=== PATIENT | male | born 1990 | race Caucasian/White ===

== ENCOUNTER 2021-08-18 19:21 | Emergency (ER) | payer OTHER ==
--- NOTE | 2021-08-18 20:20 | ED Physician Documentation ---
History of Present Illness - Stated complaint Stated Complaint: WELTS ON BODY,ITCHY - Chief complaint Chief Complaint: Allergic Rx - Additonal information Additional information: 31-year-old male presents emergency department for evaluation of hives. He began developing welts at about 11 AM while he was flying. No history of similar in the past. No new foods lotions or detergents. No family ill history of hives. When he was done flying he had generalized hives of his arms legs and torso. He had no tongue or lip swelling no difficulty breathing no chest pain. He did take a Benadryl and thus presents to the ER. Review of Systems Constitutional: reports: Reviewed and negative Nose: reports: Reviewed and negative Throat: reports: Reviewed and negative Cardiac: reports: Reviewed and negative Respiratory: reports: Reviewed and negative GI: reports: Reviewed and negative : reports: Reviewed and negative Skin: reports: Rash PD PAST MEDICAL HISTORY - Past Medical History Past Medical History: No - Past Surgical History Past Surgical History: No - Present Medications Home Medications: Ambulatory Orders Medication Instructions Recorded Confirmed Famotidine [Pepcid] 20 mg PO BID #60 tablet 08/18/21 diphenhydrAMINE [Benadryl] 25 mg PO BID #8 cap 08/18/21 predniSONE [Deltasone] 40 mg PO DAILY 4 Days #8 tablet 08/18/21 - Allergies Allergies/Adverse Reactions: Allergies Allergy/AdvReac Type Severity Reaction Status Date / Time No Known Drug Allergies Allergy Verified 08/18/21 19:29 - Social History Does the pt smoke?: No Smoking Status: Never smoker Does the pt drink ETOH?: No Does the pt have substance abuse?: No - Immunizations Immunizations are current?: Yes - POLST Patient has POLST: No PD ED PE NORMAL - General General: Alert and oriented X 3, No acute distress, Well developed/nourished - HEENT HEENT: Atraumatic, Ears normal, Moist mucous membranes, Pharynx benign - Neck Neck: Supple, no meningeal sign, No adenopathy - Cardiac Cardiac: RRR, No murmur - Respiratory Respiratory: No respiratory distress - Abdomen Abdomen: Normal bowel sounds, Soft - Derm Derm: Normal color, Warm and dry, Other (Generalized urticarial rash of legs torso and arms. No intraoral mucosal lesions.) Results - Vitals Vitals: Vital Signs - 24 hr 08/18/21 19:26 Temperature 36.3 C L Heart Rate 94 Respiratory 14 Rate Blood Pressure 131/87 H O2 Saturation 99 Oxygen O2 Source Room air PD MEDICAL DECISION MAKING - ED course Complexity details: considered differential, d/w patient ED course: 31-year-old male presents emergency department for evaluation of a generalized urticarial rash on his torso arms and legs. Rash began about 11 AM. He did take Benadryl at 1700. He has no signs of airway distress. Etiology of his hives is not clear. Here in the emergency department he was given 40 mg of prednisone as well as Pepcid. He will be discharged with 4 days of steroids Pepcid and Benadryl. Recommend close follow-up with [facility]. Return to the ER for worsening symptoms airway difficulty. Departure - Departure Disposition: 01 Home, Self Care Clinical Impression: Urticaria Condition: Stable Record reviewed to determine appropriate education?: Yes Instructions: ED Urticaria Prescriptions: diphenhydrAMINE [Benadryl] 25 mg PO BID #8 cap predniSONE [Deltasone] 40 mg PO DAILY 4 Days #8 tablet Famotidine [Pepcid] 20 mg PO BID #60 tablet Comments: Federico benito are seen today in the emergency department for generalized hives/urticaria that began about 11 AM. There is no findings to suggest concern with your airway. The cause of your hives is not clear. In order to treat them we have given you a dose of steroids here in the emergency department. I have sent a prescription for an additional 4 days of steroids, Pepcid and Benadryl to the [facility] in [place]. In addition to the prednisone which she will take once a day I would like you to take Benadryl twice daily for 4 more days as well as Pepcid 40 mg twice daily for 4 additional days In most cases we never find out why we developed hives. However if it becomes a recurrent problem where they fail to resolve you should see [facility]. If at any point you have difficulty breathing, severe itching tongue or lip swellin g then please return immediately to the ER.
[2021-08-18] MEDS: FAMOTIDINE 20 MG TABLET PO STA (20:21)
[2021-08-18] MEDS: predniSONE 20 MG TABLET PO STA (20:21)
[2021-08-18 21:19] VITALS: BP 114/78
== END 2021-08-18 21:17 | disposition home or self-care (01) ==
LOC: ED 19:21
DX: L50.9 Urticaria, unspecified (principal)
CPT/HCPCS: 99283; A9270; J7512

== ENCOUNTER 2022-12-02 07:54 | Emergency (ER) | payer OTHER ==
[2022-12-02 08:02] VITALS: BP 135/75
--- NOTE | 2022-12-02 08:23 | ED Physician Documentation ---
History of Present Illness - Stated complaint Stated Complaint: COUGH,STAFFORD,BODY CHILLS - Chief complaint Chief Complaint: General - History obtained from History obtained from: Patient - Additonal information Additional information: The patient comes to the emergency department chief complaint of cough, rhinorrhea, and headache over approximately the last week. He states that at first the cough was dry but now it has become wet. He has had chills at night and has not measured a fever though he thinks he may have Had one. He denies any GI symptoms. He felt slightly short of breath yesterday but this resolved quickly. No lower extremity edema. He is otherwise healthy. PD PAST MEDICAL HISTORY - Past Surgical History Past Surgical History: No - Present Medications Home Medications: Ambulatory Orders Medication Instructions Recorded Confirmed Famotidine [Pepcid] 20 mg PO BID #60 tablet 08/18/21 diphenhydrAMINE [Benadryl] 25 mg PO BID #8 cap 08/18/21 predniSONE [Deltasone] 40 mg PO DAILY 4 Days #8 tablet 08/18/21 - Allergies Allergies/Adverse Reactions: Allergies Allergy/AdvReac Type Severity Reaction Status Date / Time No Known Drug Allergies Allergy Verified 08/18/21 19:29 - Social History Does the pt smoke?: No Smoking Status: Never smoker Does the pt drink ETOH?: No Does the pt have substance abuse?: No - Immunizations Immunizations are current?: Yes - POLST Patient has POLST: No PD ED PE NORMAL - Vitals Vital signs reviewed: Yes - General General: Alert and oriented X 3, No acute distress, Well developed/nourished - HEENT HEENT: Atraumatic, PERRL, EOMI, Moist mucous membranes - Neck Neck: Supple, no meningeal sign - Cardiac Cardiac: RRR, No murmur - Respiratory Respiratory: No respiratory distress, Clear bilaterally - Abdomen Abdomen: Soft, Non tender, Non distended - Derm Derm: Warm and dry, No rash - Extremities Extremities: No deformity - Neuro Neuro: Alert and oriented X 3 - Psych Psych: Normal mood, Normal affect Results - Vitals Vitals: Vital Signs - 24 hr 12/02/22 07:57 Temperature 37.2 C Heart Rate 62 Respiratory 18 Rate Blood Pressure 135/75 H O2 Saturation 98 Oxygen O2 Source Room air - Labs Labs: Laboratory Tests 12/02/22 08:20 Nasal Adenovirus (PCR) NOT DETECTED Nasal B. parapertussis DNA (PCR) NOT DETECTED Nasal Coronavir 229E PCR NOT DETECTED Nasal Coronavir HKU1 PCR NOT DETECTED Nasal Coronavir NL63 PCR NOT DETECTED Nasal Coronavir OC43 PCR NOT DETECTED Nasal Enterovir/Rhinovir PCR NOT DETECTED Nasal Influenza B PCR NOT DETECTED Nasal Influenza A PCR NOT DETECTED Nasal Parainfluen 1 PCR NOT DETECTED Nasal Parainfluen 2 PCR NOT DETECTED Nasal Parainfluen 3 PCR NOT DETECTED Nasal Parainfluen 4 PCR NOT DETECTED Nasal RSV (PCR) NOT DETECTED Nasal B.pertussis DNA PCR NOT DETECTED Nasal C.pneumoniae (PCR) NOT DETECTED [place] Human Metapneumo PCR NOT DETECTED Nasal M.pneumoniae (PCR) NOT DETECTED Nasal SARS-CoV-2 (PCR) NOT DETECTED PD Medical Decision Making - ED course Complexity details: reviewed results, re-evaluated patient, considered differential, d/w patient ED course: The patient was evaluated with chest x-ray and respiratory PCR panel. He declined symptomatic intervention in the emergency department. The chest x-ray was negative. The PCR panel was also negative. I suspect a viral illness, and I have advised the patient this point in time, antibiotics are not indicated. I have given him a work note for tomorrow and we have discussed symptomatic management at home, as well as the usual indications for return. Departure - Departure Disposition: 01 Home, Self Care Clinical Impression: Viral upper respiratory infection Condition: Stable Instructions: ED Viral Syndrome Comments: Your x-ray looks great. There is no evidence of pneumonia and at this point in time, your symptoms are most consistent with one of the many viruses that are going around right now. At this point in time, antibiotics are unlikely to be helpful and are not indicated for viral infections. You do have a viral panel that is pending while it does not test for every virus around, it sometimes can help to give an idea of what to expect as far as duration of symptoms. If anything is positive on your viral panel, we will notify you at home. Otherwise, if you are feeling well enough to go to work, you may do so, or you may take the day off tomorrow to try to get to feeling better. Please follow-up with your doctor if symptoms are not better in the next week. Forms: Activity restrictions Discharge Date/Time: 12/02/22 10:07
--- NOTE | 2022-12-02 09:02 | XRAY Report ---
PROCEDURE: Chest 2 View X-Ray INDICATIONS: cough TECHNIQUE: 2 views of the chest were acquired. COMPARISON: None. FINDINGS: Surgical changes and devices: None. Lungs and pleura: No pleural effusions or pneumothorax. Lungs are clear. Mediastinum: Mediastinal contours appear normal. Heart size is normal. Bones and chest wall: No suspicious bony lesions. Overlying soft tissues appear unremarkable. IMPRESSION: No acute process. Reviewed by: Turner Soler MD on 12/02/2022 9:01 AM PDT Approved by: Turner Soler MD on 12/02/2022 9:01 AM PDT Station ID: [id number]
[2022-12-02 09:47] LABS: B. PARAPERTUSSIS- RESP PCR PAN NOT DETECTED; B. PERTUSSIS- RESP PCR PANEL NOT DETECTED; C. PNEUMONIAE- RESP PCR PANEL NOT DETECTED; CORONAVIRUS 229E-RESP PCR NOT DETECTED; CORONAVIRUS HKU1-RESP PCR NOT DETECTED; CORONAVIRUS NL63-RESP PCR NOT DETECTED; CORONAVIRUS OC43-RESP PCR NOT DETECTED; HUMAN METAPNEUMOVIRUS NOT DETECTED; INFLUENZA A- RESP PCR PANEL NOT DETECTED; INFLUENZA B - RESP PCR PANEL NOT DETECTED; M. PNEUMONIAE- RESP PCR PANEL NOT DETECTED; PARAINFLUENZA VIRUS 1 NOT DETECTED; PARAINFLUENZA VIRUS 2 NOT DETECTED; PARAINFLUENZA VIRUS 3 NOT DETECTED; PARAINFLUENZA VIRUS 4 NOT DETECTED; RHINOVIRUS/ENTEROVIRUS NOT DETECTED; RSV- RESP PCR PANEL NOT DETECTED; SARS-CoV-2 -RESP PCR PANEL NOT DETECTED
== END 2022-12-02 10:07 | disposition home or self-care (01) ==
LOC: ED 07:54
DX: J02.9 Acute pharyngitis, unspecified (principal); Z20.822 Contact with and (suspected) exposure to COVID-19
CPT/HCPCS: 87633; 99283; 99284